=== PATIENT | male | born 1945 | race Caucasian/White ===

== ENCOUNTER 2025-01-18 08:55 | Emergency (ER) | payer MEDICARE, SELFPAY ==
[2025-01-18 09:05] VITALS: BP 121/70; PULSE 103; RESP 20; TEMP 38.2; O2SAT 97; BMI 30.3
--- NOTE | 2025-01-18 09:09 | DI.RAD.S_ITS ---
PROCEDURE: XR CHEST 2V INDICATIONS: coughing/SOB/ R/O PNA TECHNIQUE: 2 views of the chest were acquired. COMPARISON: None. FINDINGS: Surgical changes and devices: None. Lungs and pleura: Lungs are clear. No pleural effusions or pneumothorax. Mediastinum: Mediastinal contours are normal. Heart size is normal. Bones and chest wall: No suspicious bony abnormalities. Soft tissues appear unremarkable. IMPRESSION: No acute cardiopulmonary pathology. Dictated by: Elton Cruz M.D. on 01/18/2025 at 9:40 Approved by: Elton Cruz M.D. on 01/18/2025 at 9:40
[2025-01-18 09:52] LABS: Influenza A - CEPHEID Flu A POSITIVE (NEGATIVE); Influenza B - CEPHEID Flu B NEGATIVE (NEGATIVE); Respiratory Syncytial Virus Negative (Negative)
[2025-01-18 09:53] LABS: COVID-19 CEPHEID 4-PLEX PCR Negative (Negative)
[2025-01-18 10:09] VITALS: TEMP 37.9
[2025-01-18] MEDS: ACETAMINOPHEN 325 MG TABLET 650 MG PO (10:09)
--- NOTE | 2025-01-18 11:29 | ED_ITS ---
HPI - URI/Sore Throat <Bebe Patrick PA-C - Last Filed: 01/18/25 12:08> General Chief Complaint: Upper Respiratory Symptoms Stated Complaint: Cold x 7 days Time Seen by Provider: 01/18/25 11:13 History of Present Illness HPI Narrative: Mr. Ruelas is a pleasant 79-year-old male with a past medical history of prostate cancer, non-Hodgkin's lymphoma (both in remission), hypertension who presents to the emergency department with his for upper respiratory infection symptoms x2 days. States that last week they were traveling to [place], his got sick about 1 week ago with the flu, and the patient developed cough, fevers, decreased appetite 2 days ago so they are concerned that he also has the flu as well and they would like him to get Tamiflu. Patient describes congestion, cough, decreased appetite and fevers with a T-max of 100.8? at this time. He denies chest pain, difficulty breathing, abdominal pain, nausea, vomiting, diarrhea, dysuria or hematuria. He does not smoke. Related Data Previous Rx's ?Medication ?Instructions ?Recorded benzonatate 100 mg capsule 100 mg PO BID-TID PRN cough #20 01/18/25 caps ondansetron 4 mg disintegrating 4 mg PO Q8H PRN nausea and 01/18/25 tablet vomiting #14 tabs oseltamivir 75 mg capsule (Tamiflu) 75 mg PO BID 5 day s #10 caps 01/18/25 Allergies Allergy/AdvReac Type Severity Reaction Status Date / Time ciprofloxacin (From Cipro) AdvReac Verified 01/18/25 09:06 Review of Systems <Bebe Patrick PA-C - Last Filed: 01/18/25 12:08> Review of Systems ROS Unobtainable: All systems reviewed & are unremarkable except as noted in HPI and below Exam <Bebe Patrick PA-C - Last Filed: 01/18/25 12:08> Narrative Exam Narrative: GENERAL: 79 year old patient appears stated age. Well-developed patient, in no acute distress. HEAD: Atraumatic. Normocephalic. EYES: No scleral icterus. No injection or drainage. NECK: Trachea midline. Cervical ROM intact. CARDIOVASCULAR: Regular rate and rhythm. RESPIRATORY: ?Nonlabored respirations. ?Speaking in clear, full sentences. ?Clear to auscultation. Breath sounds equal bilaterally. No wheezes, rales, or rhonchi. ?Occasional dry cough during exam. EXTREMITIES: No edema or joint tenderness. NEURO: AOx3. ?Clear speech. ?Moves all 4 extremities appropriately. SKIN: No rash or erythema of visible areas Initial Vital Signs Initial Vital Signs: Vital Signs Temperature 100.8 F H 01/18/25 09:05 Pulse Rate 103 H 01/18/25 09:05 Respiratory Rate 20 01/18/25 09:05 Blood Pressure 121/70 01/18/25 09:05 Pulse Oximetry 97 01/18/25 09:05 Oxygen Delivery Method Room Air 01/18/25 09:05 <Christa Aguiar DO - Last Filed: 01/19/25 19:17> Initial Vital Signs Initial Vital Signs: Vital Signs Temperature 100.8 F H 01/18/25 09:05 Pulse Rate 103 H 01/18/25 09:05 Respiratory Rate 20 01/18/25 09:05 Blood Pressure 121/70 01/18/25 09:05 Pulse Oximetry 97 01/18/25 09:05 Oxygen Delivery Method Room Air 01/18/25 09:05 Course <Bebe Patrick PA-C - Last Filed: 01/18/25 12:08> Orders Ordered: Discontinued Medications Acetaminophen (Acetaminophen 325 Mg Tablet) 650 mg PO NOW ONE Stop: 01/18/25 10:05 Last Admin: 01/18/25 10:09 Dose: 650 mg Documented By: LIGIA Ibuprofen (Ibuprofen 400 Mg Tablet) 400 mg PO NOW ONE Stop: 01/18/25 11:29 Last Admin: 01/18/25 11:51 Dose: 400 mg Documented By: CLINT Ondansetron HCl (Ondansetron 4 Mg Odt) 4 mg SL NOW ONE Stop: 01/18/25 11:29 Last Admin: 01/18/25 11:51 Dose: 4 mg Documented By: CLINT Vital Signs Vital signs: Vital Signs - 8 hr 01/18/25 09:05 01/18/25 10:09 01/18/25 11:58 Temperature 100.8 F H 100.3 F H 98.5 F Pulse Rate 103 H Respiratory Rate 20 Blood Pressure 121/70 Pulse Oximetry 97 Oxygen Delivery Method Room Air 01/18/25 11:59 Temperature 98.5 F Pulse Rate 87 Respiratory Rate 16 Blood Pressure 108/68 Pulse Oximetry 94 Oxygen Delivery Method <Christa Aguiar DO - Last Filed: 01/19/25 19:17> Orders Ordered: Discontinued Medications Acetaminophen (Acetaminophen 325 Mg Tablet) 650 mg PO NOW ONE Stop: 01/18/25 10:05 Last Admin: 01/18/25 10:09 Dose: 650 mg Documented By: LIGIA Ibuprofen (Ibuprofen 400 Mg Tablet) 400 mg PO NOW ONE Stop: 01/18/25 11:29 Last Admin: 01/18/25 11:51 Dose: 400 mg Documented By: CLINT Ondansetron HCl (Ondansetron 4 Mg Odt) 4 mg SL NOW ONE Stop: 01/18/25 11:29 Last Admin: 01/18/25 11:51 Dose: 4 mg Documented By: CLINT Vital Signs Vital signs: Vital Signs - 8 hr 01/18/25 09:05 01/18/25 10:09 01/18/25 11:58 Temperature 100.8 F H 100.3 F H 98.5 F Pulse Rate 103 H Respiratory Rate 20 Blood Pressure 121/70 Pulse Oximetry 97 Oxygen Delivery Method Room Air 01/18/25 11:59 Temperature 98.5 F Pulse Rate 87 Respiratory Rate 16 Blood Pressure 108/68 Pulse Oximetry 94 Oxygen Delivery Method MDM - URI/Sore Throat <Bebe Patrick PA-C - Last Filed: 01/18/25 12:08> Lab Data Labs: Lab Results 01/18/25 Range/Units 09:10 SARS-CoV-2 (PCR) Negative (Negative) Influenza A (RT-PCR) Flu a positive H (NEGATIVE) Influenza B (RT-PCR) Flu b negative (NEGATIVE) RSV (PCR) Negative (Negative) Imaging Data Chest x-ray: Radiologist's Impression: PROCEDURE: XR CHEST 2V INDICATIONS: coughing/SOB/ R/O PNA TECHNIQUE: 2 views of the chest were acquired. COMPARISON: None. FINDINGS: Surgical changes and devices: None. Lungs and pleura: Lungs are clear. No pleural effusions or pneumothorax. Mediastinum: Mediastinal contours are normal. Heart size is normal. Bones and chest wall: No suspicious bony abnormalities. Soft tissues appear unremarkable. IMPRESSION: No acute cardiopulmonary pathology. Dictated by: Elton Cruz M.D. on 01/18/2025 at 9:40 Approved by: Elton Cruz M.D. on 01/18/2025 at 9:40 MDM Narrative Medical decision making narrative: 79-year-old male with a past medical history of prostate cancer, non-Hodgkin's lymphoma (both in remission), hypertension who presents to the emergency department with his for upper respiratory infection symptoms x2 days. Differential diagnosis includes but is not limited to influenza, viral syndrome, bronchitis, pneumonia, etc. Chest x-ray, viral swab and acetaminophen ordered in triage. On exam patient is in no acute distress, nontoxic appearing, occasional dry cough. His lungs are clear to auscultation. His most recent vital signs do reveal a elevated temperature of 100.3?, when he 1st came into the emergency department his heart rate was 103 and temperature was 100.8?. Viral swab is positive for influenza a and chest x-ray is negative. We will treat patient with Zofran for decreased appetite and ibuprofen for fever at this time. Symptoms have been going on for 48 hours, patient is over the age of 65, patient is requesting Tamiflu and I am agreeable. We will treat with oseltamivir 75 mg b.i.d. x5 days. We will also send patient prescription of Zofran and benzonatate to use if needed. Patient's vital signs improved significantly after ibuprofen and acetaminophen, all vital signs within normal limits. Discussed strict ED return precautions and follow up with PCP. Prescription sent to pharmacy of choice. Patient is agreeable with the plan, all questions answered, stable for discharge home. <Christa Aguiar, - Last Filed: 01/19/25 19:17> Lab Data Labs: Lab Results 01/18/25 Range/Units 09:10 SARS-CoV-2 (PCR) Negative (Negative) Influenza A (RT-PCR) Flu a positive H (NEGATIVE) Influenza B (RT-PCR) Flu b negative (NEGATIVE) RSV (PCR) Negative (Negative) Discharge Plan Departure Patient Disposition: Home Clinical Impression: Influenza A Instructions: DI for Influenza -- Adult Activity Restrictions/Additional Instructions: Dear Suraj, Thank you for coming to the emergency department. Today tested positive for influenza A. Your chest x-ray was normal. I have prescribed you Tamiflu to take twice a day for the next 5 days. I have also prescribed you Zofran which is nausea medication and benzonatate which is cough medicine to use if needed. Please rest, hydrate, use Tylenol and Motrin if needed for pain and fevers. Please take Ibuprofen (Motrin/Advil) or Acetaminophen (Tylenol) for pain. These are available over the counter. You may take Ibuprofen 600 mg every 8 hours with food for pain. You may also take Acetaminophen 650 mg every 4-6 hours for pain. Do not exceed 3000 mg of Tylenol a day as this can cause liver damage. Do not drink alcohol with either of these medications. Return to the emergency department if you develop any new or worsening symptoms, chest pain, shortness of breath or other concerns. Please follow up with your primary care doctor within the next 2-3 days for ER follow-up. (If you do not have a PCP you can call [phone]. ?to schedule an appointment with an [facility] Primary Care Provider) IF YOU DEVELOP ANY NEW OR WORSENING SYMPTOMS, RETURN TO THE ER! Please read the attached instructions, they highlight more specific treatments and interventions for you at home. Thank you for letting me participate in your care, Bebe Patrick PA-C Prescriptions: New oseltamivir [Tamiflu] 75 mg capsule 75 mg PO BID 5 Days Qty: 10 0RF benzonatate 100 mg capsule 100 mg PO BID-TID PRN (Reason: cough) Qty: 20 0RF ondansetron 4 mg tablet,disintegrating 4 mg PO Q8H PRN (Reason: nausea and vomiting) Qty: 14 0RF Referrals: Mehran Medina MD [Primary Care Provider, Medical] Stand Alone Forms: Patient Portal/API ED Sign-out <Christa Aguiar DO - Last Filed: 01/19/25 19:17> Cosign ED Attending Levy Attestation: I was immediately available in the department for consultation.
[2025-01-18] MEDS: IBUPROFEN 400 MG TABLET PO (11:51)
[2025-01-18] MEDS: ONDANSETRON 4 MG ODT SL (11:51)
[2025-01-18 11:58] VITALS: TEMP 36.9
[2025-01-18 11:59] VITALS: BP 108/68; PULSE 87; RESP 16; TEMP 36.9; O2SAT 94
[2025-01-18 13:04] VITALS: BP 105/67; PULSE 78; RESP 14; O2SAT 97
== END 2025-01-18 13:05 | disposition home or self-care (01) ==
PROVIDERS: Emergency Medicine; Emergency Provider Physician Assistant; Family Provider Internal Medicine; PCP Internal Medicine
DX: J10.1 Influenza due to other identified influenza virus with other respiratory manifestations (principal); R50.9 Fever, unspecified
CPT/HCPCS: 0241U; 71046; 99283